=== PATIENT | male | born 1990 | race Caucasian/White ===

== ENCOUNTER 2019-11-26 04:22 | Emergency (ER) | payer BC ==
[~2019-11-26] VITALS: Ht 188 cm; Wt 78.7 kg
[2019-11-26 04:31] VITALS: Ht 188 cm; Wt 78.7 kg
[2019-11-26 09:31] VITALS: BP 120/81
== END 2019-11-26 09:31 | disposition home or self-care (01) ==
LOC: ED 04:22
DX: J36 Peritonsillar abscess (principal)
CPT/HCPCS: J0696; J1100; J1885; J3490